=== PATIENT | female | born 1970 | race Caucasian/White ===

== ENCOUNTER 2021-01-13 10:40 | Emergency (ER) | payer SELFPAY ==
[2021-01-13 10:52] VITALS: BP 127/83; PULSE 87; RESP 16; TEMP 36.5; O2SAT 100
--- NOTE | 2021-01-13 11:24 | ED.GENADUL_ITS ---
Discharge Plan Disposition Patient Disposition: HOME Condition: Good Discharge Details Clinical Impression: Back pain, Muscle spasm Primary Care Provider: Unknown,Unknown ED Provider: Lissett Smith Home Meds and New Rx's Prescriptions: New cyclobenzaprine 10 mg tablet 10 mg PO TID PRN (Reason: muscle spasm) Qty: 14 RF: 0 Discharge Instructions Instructions: Muscle Spasm (ED), Back Pain (ED) Additional Instructions: Your exam and history most concerning for muscle spasms. Please encourage hydration. You may continue with Tylenol and/or ibuprofen as needed for discomfort. Topical patches such as lidocaine patches may also be of benefit. Please continue with heating pad or hot showers. You may use the Flexeril as prescribed to help with any muscle spasms. This medication can be sedating. Please not drive or take any alcohol while using this medication. Please follow-up with your primary care for reevaluation when she returned home. If you develop change in bowel or bladder habits, increased pain, fever/chills or other new/worsening symptoms please seek care urgently once again. Stand Alone Forms: Work Release Discharge Data Discharge Date/Time-TO BE ENTERED AT DEPARTURE: 01/13/21 12:05 Medical Decision Making Patient is a pleasant 50-year-old female presents today with 2 chief complaint of diffuse back pain. 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 States she had similar pain in the past with associated muscle spasms. Pain radiating down the left side of her back and has since been spreading out to include the entire thoracic, lumbar and buttock area. Reports pain with rotational as well as bending and flexing. No focal area of pain. Denies any fevers or chills. No shortness of chest pain. States that heating pack seem to improve her discomfort. 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 She denies any change in bowel or bladder habits. Denies any sensory deficits. On exam, patient appears uncomfortable but nontoxic. Vital signs are stable. No respiratory distress. She is diffusely tender throughout her back. Muscle spasm is noted. Limited rotation as well as flexion and extension. No deformity or step-off with palpation over the midline spine. She has no saddle paresthesias. Strength is equal at 5-5 strength bilaterally lower extremities. Reflexes are intact. Female who at this time, do not see evidence to suggest cauda equina or other emergent pathology spine. Her history and exam is more consistent with muscle spasms. Patient has done well with muscle relaxers historically. Will give Tylenol, ibuprofen and a Lidoderm patch now. Will prescribe muscle relaxer to go home with. Patient did drive herself here. Advised not to drive or drink alcohol while on this medication. Return precautions were discussed. Patient asked for work note excusing her from today but would like to be able to return on Thursday for the next shift. Advised that she follow-up with primary care when she returns home. All of patient's concerns were addressed and she is in agreement this plan. HPI General Mode of arrival: ambulatory . Date/Time Provider Initiated Documentation: 01/13/21 10:50 . Limitations to Documentation: no limitations . Information obtained by: patient and RN notes reviewed . History of Present Illness 50 year old F presents to the emergency department with the chief complaint of back pain, described as severe and similar to prior episodes (has had back spasms in the past), with intensity rated at 8. Quality is described as aching, and is localized to the back. Patient reports no radiation (pain is diffuse about the back). Patient started experiencing this day(s) and it has been constant. Immobilization improves symptom(s), Movement worsens symptoms (worse with heavy lifting) . Patient notes no other symptoms.. Patient did receive the following treatments prior to arrival, none Related Data Home Medications Medication Instructions Recorded Confirmed cyclobenzaprine 10 mg PO TID PRN #14 tab 01/13/21 Previous Rx's Medication Instructions Recorded cyclobenzaprine 10 mg PO TID PRN #14 tab 01/13/21 Allergies Allergy/AdvReac Type Severity Reaction Status Date / Time vancomycin Allergy Intermediate Hives Unverified 01/13/21 11:07 General Stated Complaint: Nk/Back Pain MEGHNA: 4 Review of Systems Constitutional Constitutional: Reports as per HPI, Denies chills, Denies fever(s), Denies frequent falls and Denies headache(s) ENT Ears, Nose, Mouth, and Throat: Denies headache(s) Cardiovascular Cardiovascular: Denies chest pain, Denies dyspnea and Denies dyspnea on exertion Respiratory Respiratory: Denies cough, Denies dyspnea and Denies dyspnea on exertion Gastrointestinal Gastrointestinal: Denies abdominal pain, Denies change in bowel habits and Denies fecal incontinence Genitourinary Genitourinary: Reports as per HPI, Denies urinary incontinence and Denies urinary hesitancy Musculoskeletal Musculoskeletal: Reports as per HPI, Reports back pain, Denies muscle weakness, Denies numbness, Denies radiating pain into limb, Reports stiffness and Denies tingling Integumentary/Breasts Skin/Breast: Reports as per HPI and Denies rash Neurologic Neurologic: Reports as per HPI, Denies frequent falls, Denies headache(s), Denies localized weakness, Denies numbness, Denies radicular pain, Denies sensory deficit, Denies tingling and Denies paresthesias PFSH Social History Smoking/Tobacco Use Status: Never Smoking risk assessment performed?: Yes Alcohol Intake: never Substance use type: does not use Do you feel safe at home: Yes Do you feel safe in your relationship?: Yes Exam Const General: cooperative, healthy appearing, uncomfortable, no acute distress, well developed and well groomed Nutritional Appearance: well nourished and overweight Orientation: alert and awake Neck Neck: normal visual inspection and full ROM Resp Effort & Inspection: normal respiratory effort and able to speak in complete sentences Auscultation: clear to auscultation bilaterally, no rales, no rhonchi and no wheezes Cardio Rate: regular rate Rhythm: regular rhythm Heart Sounds: S1 normal and S2 normal Back/Spine/Pelvis Cervical Spine: normal cervical lordosis, cervical ROM normal, No loss of normal cervical lordosis, No cervical muscular tenderness and No pain with cervical ROM Thoracic/Lumbar Spine: No thoraco-lumbar ROM normal (limited in all directions secondary to pain), No straight leg raise negative bilaterally, pain with thoraco-lumbar ROM and thoraco-lumbar spasm (diffuse pain with palpation, spasm noted) Pelvis: no pain with anterior-posterior compression and no pain with lateral compression Skin General skin exam: no rashes or lesions noted Neuro General: patient alert and patient awake Cognition: normal cognition Speech: speech normal Gait: normal gait Motor: muscle tone normal throughout, strength 5/5 throughout, no movement abnormalities noted and no fasciculations Sensory Exam: no sensory deficits noted (no saddle paresthesias) DTR's: Rt Patellar: 2+, Lt Patellar: 2+, Rt Ankle: 2+ and Lt Ankle: 2+ Extrem General: normal to inspection, full ROM, capillary refill normal, no joint enlargement, no pedal edema, no calf tenderness and normal gait Psych Appearance: grossly normal and well kempt Mental Status: mental status grossly normal Speech and Movement: speech and movement normal Course Vital Signs Vital signs: Vital Signs Temperature 36.5 C 01/13/21 10:52 Pulse 87 01/13/21 10:52 Respiratory Rate 16 01/13/21 10:52 Blood Pressure 127/83 01/13/21 10:52 Pulse Oximetry 100 01/13/21 10:52 Temperature 36.5 C 01/13/21 10:52 Temperature Source Temporal Artery Scan 01/13/21 10:52 Pulse 87 01/13/21 10:52 Respiratory Rate 16 01/13/21 10:52 Respiratory Effort Non-Labored 01/13/21 10:59 Blood Pressure 127/83 01/13/21 10:52 Blood Pressure Position Sitting 01/13/21 10:52 Pulse Oximetry 100 01/13/21 10:52 Oxygen Delivery Method Room Air 01/13/21 10:52 Oxygen Flow Rate 0 01/13/21 10:52 Pain Level 8 01/13/21 11:04
[2021-01-13] MEDS: Ibuprofen 600 MG TAB PO (11:44)
[2021-01-13] MEDS: Acetaminophen 500 MG TAB 1000 MG PO (11:45)
[2021-01-13] MEDS: Lidocaine 5% Patch 1 PATCH TP (12:00)
[2021-01-13 12:06] VITALS: BP 109/64; PULSE 77; RESP 17; TEMP 36.2; O2SAT 100
== END 2021-01-13 12:05 | disposition home or self-care (01) ==
PROVIDERS: Emergency Provider Physician Assistant
DX: M54.89 Other dorsalgia (principal); M62.830 Muscle spasm of back; X50.0XXA Overexertion from strenuous movement or load, initial encounter; Y99.0 Civilian activity done for income or pay
CPT/HCPCS: 99283